=== PATIENT | male | born 1945 | race Caucasian/White ===

== ENCOUNTER 2020-04-17 13:08 | Emergency (ER) | payer OTHER | END 2020-04-17 21:07 | disposition home or self-care (01) | LOC: ER 13:08 | DX: D61.818 Other pancytopenia (principal); G89.29 Other chronic pain; E66.9 Obesity, unspecified; Z88.5 Allergy status to narcotic agent; Z79.899 Other long term (current) drug therapy; Z88.0 Allergy status to penicillin; Z79.4 Long term (current) use of insulin; Z79.82 Long term (current) use of aspirin ==

== ENCOUNTER 2020-06-25 14:59 | Inpatient (IN) | payer OTHER ==
[~2020-06-25] VITALS: Ht 180.3 cm; Wt 105.7 kg
--- NOTE | ~2020-06-25 | O ---
[facility] [place] [address] OPERATIVE REPORT Name: NAVID SHEETS Room #: 204-P ADM IN M.R.#: [id number] Admission: 06/25/20 Attend Phys: Senait Morelos MD Discharge: Date of : 41 Report #: [id number] THIS REPORT FOR: cc: Dallin Lucero James D. DO VanDenBerghe, Gregory R. MD ~ CC: Dallin Morelos DATE OF SERVICE: 06/30/2020 PREOPERATIVE DIAGNOSES: Left leg nonhealing diabetic ulcers, infected; peripheral diabetic neuropathy and vasculopathy; calcaneal osteomyelitis. POSTOPERATIVE DIAGNOSES: Left leg nonhealing diabetic ulcers, infected; peripheral diabetic neuropathy and vasculopathy; calcaneal osteomyelitis. PROCEDURE PERFORMED: Left below-knee amputation. SURGEON: Joe Watts MD ANESTHESIA: General per LMA. FLUIDS: 400 mL crystalloid. ESTIMATED BLOOD LOSS: 50 mL. SPECIMENS: Left leg. DESCRIPTION OF PROCEDURE: After proper identification of the patient and the operative site in preoperative holding area, the operative site was signed by myself. We again reviewed treatment options discussed the risks, benefits, alternatives and potential complications. We reviewed the level of the amputation based on his chronic venous stasis changes as well as the status of his lower extremity. The patient was comfortable with proceeding with a standard below-knee amputation. The patient was brought back to the operative suite and a general anesthetic was administered through LMA. Tourniquet was applied to the upper thigh. The left lower extremity was sterilely prepped and draped in the usual manner, elevated for exsanguination purposes. Tourniquet was inflated to 350 mmHg. The patient had multiple wounds on the foot and heel and chronic venous stasis in the lower extremity. Anteriorly and posteriorly based fishmouth type flaps were planned keeping this in as healthy tissue as possible. Planned bone cut was made as well as the skin incisions. Several eschars are noted on the anterior knee that were chronic in appearance, did not appear to be infected and at this point full thickness skin flaps were developed. The anterolateral compartment musculature was carefully divided with [facility] [address] [place] [address] OPERATIVE REPORT Name: NAVID SHEETS Room #: 204-P ADM IN M.R.#: [id number] Admission: 06/25/20 Attend Phys: Senait Morelos MD Discharge: Date of : 41 Report #: [id number] electrocautery and neurovascular structures were identified. Vascular structures were ligated and cauterized. All nervous structures were retracted distally and sectioned as far proximally as possible. Tibia and fibula cuts were planned. These were performed with an oscillating saw. Edges were chamfered to remove any sharp edges. Fibula was osteotomized proximal to the tibia. A posterior myocutaneous flap was created and the tourniquet was deflated. The patient had good punctate bleeding from the tissues. All major vascular structures had been ligated and cauterized. There was good hemostasis and the wound was thoroughly irrigated multiple times. At this point, the myocutaneous flap was closed. Fascial layer was closed with #1 Vicryl in a simple swsvut-iq-rimui manner. Then, 0 Vicryl for the more deeper subcutaneous tissues and final skin closure was with 2-0 nylon in a gneqik-ya-vinpm manner as well as iman. A Kat drain had been placed deep. This was freely mobile. There was good hemostasis, nice appearance to the stump. No significant dog ears were present and a sterile compressive dressing was applied and at the time of dictation, he was still in the operative suite with anticipated discharge to recovery room in stable condition. 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 By: [phone] Joe Watts MD /nt
[~2020-06-25 14:59] MED LIST: ASA81BEC PO; CALAMINE LOTIO177 M1 TOP; CLOTRIMAZOLE-321 GM TOP; DIFLUCAN100 MG PO; DULCOLAX5 MG PO; FUROSEMIDE 20 M20 MG PO; GUAIFENESIN DM1 EACH PO; HYDRALAZINE 5050 MG PO; KEFLEX500 M1 PO; LANTUS SUBQ; LIPITOR40 MG PO; NEURONTIN 300M300 M2 PO; NORCO 10-325 T1 EACH PO; NORVASC 2.5 MG2.5 M1 PO; NOVOLOG100 UNIT/M SUBQ; NYSTATIN15 G2 TOP; PLAVIX 75 MG TA75 MG PO; POTASSIUM20 PO; PROAIR HFA8.5 GM INH; SPIRIVA RESPIMAT4 G1 INH; SYMBICORT160 MCG/4. INH; SYNTHROID175 MCG PO; TREXALL7.5 MG PO
[2020-06-25 15:15] VITALS: BP 152/121
[2020-06-25 16:15] LABS: CALCIUM 9.2 mg/dL (8.5-10.1); POTASSIUM 4.4 mmol/L (3.5-5.1)
[2020-06-25 16:22] LABS: ALBUMIN 1.9 g/dL (3.4-5.0); TOTAL BILIRUBIN 0.5 mg/dL (0.2-1.0); TOTAL PROTEIN 8.2 g/dL (6.4-8.2)
[2020-06-25 17:07] LABS: ABSOLUTE NEUTROPHILS 18.2 thou/uL (1.4-8.2); BASOPHILS 0.6 % (0.0-2.0); EOSINOPHILS 0.4 % (0.0-3.0); HEMATOCRIT 28.3 % (42.0-52.0); HEMOGLOBIN 8.9 gm/dL (14.0-18.0); LYMPHOCYTES 3.5 % (24.0-44.0); MCH 29.2 pg (26.0-34.0); MCHC 31.4 g/dL (28.0-37.0); MCV 92.8 fL (80.0-100.0); MONOCYTES 3.5 % (1.0-8.0); PLATELET COUNT 327 thou/uL (150-400); RBC 3.05 mil/uL (4.50-6.00); RDW 20.1 % (10.5-14.5); WBC 19.8 thou/uL (4.0-11.0)
[2020-06-25 17:33] LABS: ANISOCYTOSIS 1+; PLATELET ESTIMATE NORMAL
--- NOTE | 2020-06-25 19:08 | NUR ---
CALLED LAB AT THIS TIME TO HAVE THEM COME PULL REPEAT LACTIC IT'S DUE AT 1900, MIGUEL SAID HE'D BE ON HIS WAY
[2020-06-25 21:14] LABS: % SATURATION 16 % (20-39); IRON 28 ug/dL (65-175); TIBC 170 ug/dL (250-450)
[2020-06-25 21:54] LABS: TSH 0.882 uIU/mL (0.358-3.740)
[2020-06-25 22:24] LABS: FOLIC ACID 50.5 ng/mL (8.6-58.9)
[2020-06-25 23:56] LABS: URINE BILIRUBIN NEGATIVE (Negative); URINE BLOOD 1+ (Negative); URINE CLARITY CLEAR; URINE COLOR YELLOW; URINE GLUCOSE-RANDOM* NEGATIVE (Negative); URINE KETONES NEGATIVE (Negative); URINE NITRITE-REFLEX NEGATIVE (Negative); URINE PROTEIN (DIPSTICK) TRACE (Negative); URINE UROBILINOGEN 0.2 E.U./dl (0.2-1.0)
[2020-06-26 00:05] LABS: URINE LEUKOCYTES-REFLEX 3+ (Negative)
[2020-06-26 00:31] LABS: BACTERIA-REFLEX 1-9 Few /HPF (None Seen); CASTS None Seen /LPF (None Seen); CRYSTALS None Seen /LPF (None Seen); MUCUS None Seen strn/LPF (None Seen); SQUAMOUS None Seen /LPF (0-3); URINE RBC 0-2 Rare /HPF (0-2)
[2020-06-26 06:53] LABS: HEMOGLOBIN 9.5 gm/dL (14.0-18.0); PLATELET COUNT 317 thou/uL (150-400)
[2020-06-26 06:55] LABS: ABSOLUTE NEUTROPHILS 13.5 thou/uL (1.4-8.2); BASOPHILS 1.1 % (0.0-2.0); EOSINOPHILS 3.6 % (0.0-3.0); HEMATOCRIT 29.7 % (42.0-52.0); LYMPHOCYTES 8.4 % (24.0-44.0); MCH 29.8 pg (26.0-34.0); MCV 93.3 fL (80.0-100.0); MONOCYTES 4.7 % (1.0-8.0); POLYS 82.2 % (36.0-66.0); RBC 3.19 mil/uL (4.50-6.00); RDW 20.2 % (10.5-14.5); WBC 16.4 thou/uL (4.0-11.0)
[2020-06-26 07:16] LABS: ALBUMIN 1.8 g/dL (3.4-5.0); CALCIUM 8.6 mg/dL (8.5-10.1); CREATININE 2.3 mg/dL (0.7-1.3); MAGNESIUM 2.2 mg/dL (1.8-2.4); PHOSPHORUS 3.7 mg/dL (2.5-4.9); POTASSIUM 3.6 mmol/L (3.5-5.1); TOTAL BILIRUBIN 0.3 mg/dL (0.2-1.0); TOTAL PROTEIN 7.6 g/dL (6.4-8.2)
--- NOTE | 2020-06-26 10:01 | NUR ---
ORTHO CONSULT, THIS WEB SPECIALIST SPEAKS WITH DR DAVIS. THIS WEB SPECIALIST UPDATES ABOUT PT AND READS LFOOT XRAY. VERBAL ORDER PER DR DAVIS: 3 VIEW XRAY OF RIGHT FOOT
--- NOTE | 2020-06-26 10:06 | NUR ---
SPOKE WITH DR COLIN IN INFECTIOUS DISEASE PER CONSULT ORDERS.
--- NOTE | 2020-06-26 11:03 | NUR ---
VASCULAR ACCESS CONSULTED FOR ML IN ADDITION TO PIV. GENE BRACHIAL WAS WIDELY PATENT WITH USG. DISCUSSED BENEFITS AND RISK WITH PT, VERBALIZED CONSENT. 4FR POWER ML TRIMMED TO 13CM WITH 1CM EXTERNAL BRISK BR. RELEASED FOR IMMEDIATE USE PER PROTOCOL TO JACKSON SAUL. PT TOLERATED WELL
[2020-06-26 22:11] VITALS: BP 147/87
[2020-06-26 22:18] VITALS: BP 135/64
[2020-06-27 00:50] VITALS: BP 131/57
[2020-06-27 05:14] VITALS: BP 132/56
--- NOTE | 2020-06-27 06:28 | NUR ---
RECIEVED PT FROM ED UPON ARRIVAL TO UNIT PT WITH URINE AND STOOL WOUND NOTED ON HEEL AND BILATERAL FEET, AND COCCYX AREA PICTURES TAKEN AND CHARTED , DATA BASE COMPLETED FROM [facility] AND ASSESSMENT COMPLETED , IV ANTIBOTICS STARTED, PT REQUESTED FOOD , BOX LUNCH GIVEN, BLOOD GLUCOSE TAKEN AND TREATED. PT ALERT TO SELF AND PLACE , POOR HISTORIAN , AND PERIOD OF FORGETFULNESS NOTED. ENVIRONMENTAL GEOLOGIST PLACED ON SHOWS NSR WITH BBB. BED ALARM ON FOR SAFETY WILL CONITNUE WITH CURRENT PLAN OF CARE.
--- NOTE | 2020-06-27 19:51 | NUR ---
PT A&OX3-4. CONFUSED AT TIMES. IV INTACT IN L HAND, R HAND AND R FA. INCONT OF BOWEL AND BLADDER. CALL LIGHT W/I REACH, BED ALARM ON. FEEDS SELF WITH SETTING UP TRAY.
[2020-06-27 20:35] VITALS: BP 134/61
[2020-06-28 04:41] VITALS: BP 134/62
--- NOTE | 2020-06-28 04:57 | NUR ---
Patient making slow progress towards outcome goals. Vital signs and rhythm stable. Total care.
[2020-06-28 05:47] LABS: HEMATOCRIT 25.8 % (42.0-52.0); HEMOGLOBIN 8.2 gm/dL (14.0-18.0); MCH 29.8 pg (26.0-34.0); MCHC 31.7 g/dL (28.0-37.0); MCV 93.9 fL (80.0-100.0); RBC 2.75 mil/uL (4.50-6.00); RDW 19.7 % (10.5-14.5); WBC 11.5 thou/uL (4.0-11.0)
[2020-06-28 06:03] LABS: CREATININE 1.7 mg/dL (0.7-1.3); POTASSIUM 3.7 mmol/L (3.5-5.1)
[2020-06-28 08:45] VITALS: BP 137/57
[2020-06-28 12:31] VITALS: BP 126/50
--- NOTE | 2020-06-28 17:01 | NUR ---
PT CARE ASSUMED AT 0700, PT ALERT AND ORIENTED X3, DENIES CHEST PAIN, NAUSEA AND VOMITING. VITSAL SIGNS STABLE. PT IS ON 3L OF O2 VIA NC, NO SIGNS OF DISTRESS LUNGS DIMINISHED. PT INCONTIENT, FREQUENTLY CHECKED AND CLEANED UP. WOUND CARE COMPLETED ON THE LEFT HEEL AND SACRUM. PT REFUSE TO BE TURN, EDUCATION REINFORCED. CALL LIGHT AND TABLE WITHIN REACH, BED AT LOWEST LEVELW WITH ALARM ON. WILL CONTINUE TO MONITOR.
[2020-06-28 17:25] VITALS: BP 119/47
[2020-06-28 19:57] VITALS: BP 134/50
[2020-06-29 00:15] VITALS: BP 132/56
[2020-06-29 04:00] VITALS: BP 137/59
--- NOTE | 2020-06-29 04:18 | NUR ---
Patient making slow progress towards outcome goals. Vital signs and rhythm stable. Denies pain. NPO after MN for planned Left below knee amputation. Patient expressed understanding of surgery including risks, Consent signed by patient and witnessed by this ad writer. High fall risks, fall precautions in place.
[2020-06-29 07:48] VITALS: BP 121/50
--- NOTE | 2020-06-29 10:04 | NUR ---
RD consult received for pt with nonhealing diabetic foot ulcer. Pt will require BKA today. Pt in isolation so unable to visit. Spoke with RN, pt has been eating well. Ate 70-100% of 2 meals yesterday. Hx diabetes, A1C 7%, reasonable control. Unsure of any wt changes. Recommend resume carb control diet and will offer Glucerna shake 1x day post op for added protein. Low nutrition risk
[2020-06-29 11:18] VITALS: BP 104/50
--- NOTE | 2020-06-29 11:46 | NUR ---
Case opened to follow for dc planning. Chart reviewed and case discussed with the care team. Air And Missile Defense Crewmember attempted to reach the pt in his room w/o success. Pt is a half-way care resident at [facility]. Their liason has faxed two covid neg test results over for 06/16/20 and 06/12/20 and senior grant writer forwarded those to the unit. Pt is A&ox3 but forgetful. He is his own person and does not have a dpoa or legal guardian. He has a friend noted as his emergency contact. The pt has consented for lt BKA with MRI pending. Covid test here was negative also. Pt is NPO for possible surgery today. Enhanced ISO being dc'd and the pt will likely transfer to a med surg floor postop. He is on 3liters of O2 and is incont of bowel/bladder. He has limited mobility and chronic wounds at the facility. DC plan is to return to the [facility]. They are checking to see if he has any medicare snf days available for therapy;otherwise he will return under his medicaid with part B therapies. Will follow.
[2020-06-29 15:14] VITALS: BP 120/55
--- NOTE | 2020-06-29 17:50 | NUR ---
PT CARE ASSUMED 0700, PT ALERT AND ORIENTED X4, PT DENIES CHEST PAIN, NAUSEA AND VOMITTING. PT IS ON 3L OF O2 VIA NC, NO SIGNS OF DISTRESS NOTED. PT COMPLAINS OF LEFT FOOT PAIN, DR. BUTT NOTIFIED, NEW PAIN MED GIVEN PER ORDER. 1100 SURGERY CANCELLED UNTIL TMR, PT ABLE TO EAT TODYA AND KEEP NPO AFTER MIDNIGHT PER SURGERY ORDER. 1400 PT TAKEN DOWN FOR MRI [address] PT BELONGINGS PACKED AND SENT DOWN WITH PT TO CCU.
[2020-06-29 19:38] VITALS: BP 132/62
--- NOTE | 2020-06-30 03:11 | NUR ---
ASSUMED CARE OF PATIENT AT 1900. PATIENT REMAINS ON 3L OF OXYGEN. LUNG SOUNDS COARSE. NO COUGH NOTED. FIRM EDEMA IN BILATERAL LOWER EXTREMITIES. DRESSING TO LEFT FOOT REMAINS INTACT. PATIENT NPO AT MIDNIGHT.
[2020-06-30 04:49] VITALS: BP 127/51
[2020-06-30 06:22] LABS: HEMATOCRIT 27.7 % (42.0-52.0); HEMOGLOBIN 9.1 gm/dL (14.0-18.0); MCH 30.8 pg (26.0-34.0); MCHC 32.9 g/dL (28.0-37.0); MCV 93.7 fL (80.0-100.0); RBC 2.96 mil/uL (4.50-6.00); WBC 10.8 thou/uL (4.0-11.0)
--- NOTE | 2020-06-30 09:50 | NUR ---
RECEIVED OT EVALUATION ORDERS PRIOR TO PATIENT'S BKA. WILL NEED NEW POST OP ORDERS.
--- NOTE | 2020-06-30 09:59 | HC ---
[facility] [place] [address] CONSULTATION Name: NAVID SHEETS Room #: 204-P ADM IN M.R.#: [id number] Admission: 06/25/20 Attend Phys: Senait Morelos MD Discharge: Date of : 41 Report #: [id number] THIS REPORT FOR: cc: Dallin Lucero,Ricardo Painter MD ~ CC: Dallin Morelos DATE OF SERVICE: 06/26/2020 CHIEF COMPLAINT: Left heel ulceration. HISTORY OF PRESENT ILLNESS: This is a 75-year-old male patient with a history of left heel ulcer for the past several months. It began around 05/16 as a blister, was being managed by Podiatry, has become increasingly painful with drainage and apparently exposed bone. PAST MEDICAL HISTORY: Positive for history of sepsis, positive COPD, type 2 diabetes mellitus, hypertension, hyperlipidemia, tobacco dependency, and history of peripheral vascular disease. He has had prior amputation of the toes of the left foot. FAMILY HISTORY: Positive for heart disease in the father. SOCIAL HISTORY: Positive for current smoker, 2 packs per day. Heavy use of alcohol in the past, having quit 36 years ago. MEDICATIONS: Include ProAir, Norvasc, enteric-coated aspirin, Lipitor, Dulcolax, Symbicort, calamine, Keflex, Plavix, clotrimazole, Diflucan, furosemide, Neurontin, hydralazine, Lantus, Synthroid, methotrexate, [place], Norvasc, K-Dur. PHYSICAL EXAMINATION: VITAL SIGNS: Include temperature 37.1, pulse rate 122, respiratory rate 20, blood pressure 152/121. GENERAL: This is a chronically ill-appearing male patient who appears to be in minimal distress. HEENT: Head normocephalic. Nose and throat are clear. NECK: Supple. LUNGS: Diminished. HEART: Regular rhythm. ABDOMEN: Soft. EXTREMITIES: The right foot demonstrates surgically absent toes. There is a very large left heel ulcer with purulent drainage and palpable bone. NEUROLOGIC: The patient is alert and oriented. [address] [address] CONSULTATION Name: NAVID SHEETS Room #: 204-P ADM IN M.R.#: [id number] Admission: 06/25/20 Attend Phys: Senait Morelos MD Discharge: Date of : 41 Report #: [id number] LABORATORY DATA: Include white blood cell count 19.8, hemoglobin 8.9. Sodium 138, potassium 3.6, chloride 101, CO2 of 30, BUN 65, creatinine 2.3. CRP 299. X-ray does not show evidence of any osteomyelitis. CLINICAL IMPRESSION: 1. Diabetic ulceration to the left posterior heel with probable underlying osteomyelitis. 2. History of tobacco use. 3. Peripheral vascular disease by clinical exam. RECOMMENDATIONS: At this point in time, I think additional studies including sed rate, possible MRI of the left foot would be appropriate as well as vascular studies. Likely, the foot is not salvageable and require BKA. The hospitalist had already consulted Orthopedic Surgery. We will recommend a Dakin's moist gauze dressing for the time being. I appreciate being asked to see him in consultation. <ELECTRONICALLY SIGNED> By: Ricardo Burgos MD 06/30/20 0959 [id number] [id number] Ricardo Burgos MD /nt
[2020-06-30 10:04] VITALS: BP 108/55
--- NOTE | 2020-06-30 10:27 | NUR ---
PATIENT HAS NO MEDICARE A DAYS LEFT. WOULD RETURN TO FACILITY [facility] [place] MEDICAID AND UTILIZE PART B THERAPIES.
[2020-06-30 10:37] VITALS: BP 108/33
--- NOTE | 2020-06-30 10:38 | NUR ---
PT CARE ASSUMED FROM OR AT 1005. A&Ox4. PT COMPLAINING OF PAIN ON AMPUTATED LEG. EDUCATION GIVEN ON NERVE ENDINGS AND PAIN MEDICATED. VITALS STABLE EXCEPT O2. ON 5L WITH 94%. PT TOLERATING CLEAR LIQUIDS WELL AND AVANCED BACK TO PRE OP DIET. PT RESTING. FALL PROTOCOL IN PLACE. IV PATENT WITH NO REDNESS OR EDEMA. PICC LINE DRAWS BACK AND FLUSHES WELL. FLUIDS INFUSING ON IV SITE. WILL CONTINUE TO MOMNITR AND WEAN OFF OF O2. CALL LIGHT IN REACH.
[2020-06-30 10:51] LABS: CALCIUM 8.5 mg/dL (8.5-10.1); CREATININE 1.7 mg/dL (0.7-1.3); POTASSIUM 4.1 mmol/L (3.5-5.1)
--- NOTE | 2020-06-30 16:23 | NUR ---
FAXED CLINICAL UPDATE TO [facility] SPOKE WITH DOMINIK DICKEY SHE RECEIVED UPDATE. DP TO FOLLOW.
[2020-06-30 16:55] VITALS: BP 120/65
[2020-06-30 19:47] VITALS: BP 115/54
[2020-07-01] VITALS (9 sets, daily range): BP systolic 103–132; BP diastolic 41–75
--- NOTE | 2020-07-01 05:28 | NUR ---
SLEPT MOST OF SHIFT PAST PAIN MEDICATION NEEDED. WORKING ON GOALS AND PLAN OF CARE FOR NOC. REPOSITIONED EVERY 2-3 HOURS FOR COMFORT AND SKIN CARE. PROGRESSING SLOWLY TOWARDS DISCHARGE GOALS. CONTINUE TO ASSES CLOSELY.
[2020-07-01 05:37] LABS: HEMATOCRIT 25.6 % (42.0-52.0); HEMOGLOBIN 8.2 gm/dL (14.0-18.0); MCH 29.9 pg (26.0-34.0); MCHC 31.8 g/dL (28.0-37.0); MCV 93.8 fL (80.0-100.0); RBC 2.73 mil/uL (4.50-6.00); RDW 19.8 % (10.5-14.5); WBC 9.7 thou/uL (4.0-11.0)
[2020-07-01 05:49] LABS: CREATININE 1.6 mg/dL (0.7-1.3); POTASSIUM 4.3 mmol/L (3.5-5.1)
--- NOTE | 2020-07-01 14:49 | NUR ---
tenative plan for discharge in am. Patient asking if can have a pvt room. Inquired and they are full unable to provide pvt room. Let patient know. He is aware tenative dc in am. Dr Guidry sp with facility and they do not need a COVID to return. Patient likely need stretcher van for transport.
--- NOTE | 2020-07-01 18:37 | NUR ---
ASSUMED CARE AT SHIFT CHANGE, ALERT AND ORIENTED X3, FORGETFUL AND PLEASANTLY CONFUSED. Q2 POSITIONED AND NEEDED FOR COMFORT. MEDICATED FOR LT BKA PAIN. PROGRESSING TOWARDS GOALS AND WILL CONTINUE TO MONITOR.
[2020-07-02 04:54] VITALS: BP 124/64
[2020-07-02 05:50] LABS: HEMATOCRIT 27.3 % (42.0-52.0); HEMOGLOBIN 8.7 gm/dL (14.0-18.0); MCH 30.2 pg (26.0-34.0); MCV 94.4 fL (80.0-100.0); RBC 2.89 mil/uL (4.50-6.00); RDW 19.4 % (10.5-14.5); WBC 9.3 thou/uL (4.0-11.0)
[2020-07-02 07:46] VITALS: BP 121/59
[2020-07-02] MEDS ORDERED: CIPRO500 M1 PO (10:05)
[2020-07-02] MEDS ORDERED: KEFLEX500 M1 PO (10:05)
--- NOTE | 2020-07-02 10:51 | NUR ---
RECEIVED PT'S CARE AROUND 0710; PT. ON BED; RESTING WITH EYES CLOSED; EQUAL CHEST RISING NOTICED; SR ON THE MONITOR; DURING AM ASSESSMENT; ALERT TO PERSON, PLACE & SITUATION; C/O PAIN OVER LLE; PT. RESTING WITH CLOSE EYES IMMEDIATELY AFTER TALKING; SLEEP INTERRUPTED TO GIVE AM MEDICATIONS; SR ON THE MONITOR; EDUCATED ABOUT CALLING & NOT SHOUTING; ST. UNDERSTANDING; EDUCATED ABOUT D/C PROCESS; ST. UNDERSTANDING; FORGETFUL; ASSESSMENT CHARGED; FOLLOWING POC; WORKING ON D/C PAPERS; PER HUMAN RESOURCE OFFICER RIDE WILL ARRIVE AT 1300; MONITORING;
--- NOTE | 2020-07-02 10:52 | NUR ---
Pt dcing back to bed bug exterminator care at [facility] via stretcher van at 1300 today. All parties updated. Chart copy is in progress and dc digital media planner is faxing his oders. Pt does not have any snf medicare days left and will return there [facility] with recommendations for part b therapies.
[2020-07-02 11:01] VITALS: BP 128/75
[2020-07-02] MEDS ORDERED: CIPRO500 MG PO (12:16)
--- NOTE | 2020-07-02 12:45 | NUR ---
PT DIS[place] [facility] [place] ORDERS/SUMMARY TO FACILITY SPOKE WITH DOMINIK IN ADM SHE RECEIVED ORDERS. TRANSPORT ARRANGED BY MARCI GILMAN FOR 1300 TODAY.
[2020-07-02 15:54] LABS: URINE BILIRUBIN NEGATIVE (Negative); URINE BLOOD NEGATIVE (Negative); URINE CLARITY SL CLOUDY; URINE COLOR YELLOW; URINE GLUCOSE-RANDOM* NEGATIVE (Negative); URINE KETONES NEGATIVE (Negative); URINE NITRITE-REFLEX NEGATIVE (Negative); URINE PROTEIN (DIPSTICK) 1+ (Negative); URINE UROBILINOGEN 0.2 E.U./dl (0.2-1.0)
[2020-07-02 15:56] LABS: URINE LEUKOCYTES-REFLEX 1+ (Negative)
[2020-07-02 16:09] LABS: CASTS None Seen /LPF (None Seen); SQUAMOUS 0-3 Few /LPF (0-3); URINE RBC 0-2 Rare /HPF (0-2); URINE WBC-REFLEX 6-15 Few /HPF (0-5)
[2020-07-02 16:10] LABS: CRYSTALS None Seen /LPF (None Seen)
--- NOTE | 2020-07-06 08:06 | PATH ---
[facility] [address] [place] [address] PATHOLOGY RPT PROCEDURE Name: MICHAEL SHEETS Room #: 204-P DIS IN M.R.#: [id number] Admission: 06/25/20 Date of : 41 Discharge: 07/02/20 Report #: [id number] Path Case #: [id number] [facility] Accession Number: [id number] . 01 Material submitted: . knee - LEFT BELOW KNEE. Modifiers: left . 01 Clinical history: . SEPSIS SEPTIC SHOCK, OSTEOMYELITIS . 02 Diagnosis: Leg, left, below knee amputation: - Skin and subcutaneous tissue showing extensive ulceration, marked acute inflammation as well as gangrenous necrosis. - Acute inflammation extends into underlying bone showing acute osteomyelitis as well as osteonecrosis. - Anterior and posterior tibial vessels showing moderate calcific atherosclerosis associated with luminal narrowing. - Skin and subcutaneous tissue margin viable. - Bone margin grossly viable. (IUV:bonita; 07/03/2020) QMS 07/03/2020 1452 Local . 02 Electronically signed: . Liz Soria MD, Pathologist NPI- [id number] . 01 Gross description: . The specimen is received fresh in a red biohazard bag, labeled "Michael Sheets, left below knee". Received is a left [id number] amputation measuring 26.6 cm from heel to toe, 27.2 cm from heel to skin margin, 35.0 cm from heel to tibial bone margin, and 38.4 cm from heel to fibular bone margin. The bone margins are blunt in appearance, consistent with transection, and appear grossly unremarkable. The skin and soft tissue margins appear viable. All five toes are present. The nails are pale hudson to light hudson and severely thickened in appearance. Overlying the lateral one half of the foot, and extending onto the calcaneus, is a poorly circumscribed, irregular in contour and necrotic-appearing lesion measuring 20.2 x 7.1 cm in greatest dimensions. Sectioning through the lesion on the lateral aspect of the foot reveals underlying purulent material. On the medial aspect of the calcaneus, lesion exposes the underlying bone. Near the skin margin on the anterior aspect, there is a poorly circumscribed, irregular in contour, flaky and light hudson lesion measuring 12.8 x 6.6 cm. Sectioning through the anterior and posterior tibial vasculatures reveals patent lumens. The specimen is submitted representatively as follows: [address] [address] PATHOLOGY RPT PROCEDURE Name: MICHAEL SHEETS Room #: 204-P DIS IN M.R.#: [id number] Admission: 06/25/20 Date of : 41 Discharge: 07/02/20 Report #: [id number] Path Case #: [id number] . A1 skin and soft tissue margin A2 account retention representative section of lesion from lateral aspect of foot A3 account retention representative section of lesion from calcaneus overlying exposed bone A4 account retention representative sections of calcaneal bone, following decalcification A5 anterior and posterior tibial vasculatures. (CAA; 07/01/2020) QAC/QAC 07/01/2020 1923 Local . 02 Pathologist provided ICD-10: L97.929, L98.9, I96, M86.10, M87.9, I70.202 . 02 CPT . 102811, [id number] Specimen Comment: A courtesy copy of this report has been sent to [phone], [phone]- Specimen Comment: [phone], Specimen Comment: Report sent to ,DR DE LA O / DR MCDONOUGH Specimen Comment: Report sent to Performed at: [address] [facility] [address], [place], [place] [id number] MD David Malloy MD Phone: [phone] Performed at: [address] [facility] [address] [id number] MD Liz Soria MD Phone: [phone]
== END 2020-07-02 15:49 | DRG 853 ==
LOC: ER 14:59 → 3W 17:22 → EROBS 17:22 → 3W 06-27 00:02 → 2N 06-29 18:12
PROVIDERS: Anesthesiology; Hospitalist; Nurse Practitioner Family; Physician Assistant; Physician Assistant Surgical; Specialist; ADMIT Internal Medicine; ATTEND Internal Medicine
PROC: 05H933Z Insertion of Infusion Device into Right Brachial Vein, Percutaneous Approach (ICD-10-PCS; principal; 2020-06-26)
PROC: 0Y6J0Z2 Detachment at Left Lower Leg, Mid, Open Approach (ICD-10-PCS; 2020-06-30)
DX: A41.9 Sepsis, unspecified organism (principal); N17.0 Acute kidney failure with tubular necrosis; R65.21 Severe sepsis with septic shock; E43 Unspecified severe protein-calorie malnutrition; L03.116 Cellulitis of left lower limb; M86.8X7 Other osteomyelitis, ankle and foot; N39.0 Urinary tract infection, site not specified; E11.52 Type 2 diabetes mellitus with diabetic peripheral angiopathy with gangrene; I96 Gangrene, not elsewhere classified; I13.0 Hypertensive heart and chronic kidney disease with heart failure and stage 1 through stage 4 chronic kidney disease, or unspecified chronic kidney disease; E11.621 Type 2 diabetes mellitus with foot ulcer; E11.69 Type 2 diabetes mellitus with other specified complication; J44.9 Chronic obstructive pulmonary disease, unspecified; E78.5 Hyperlipidemia, unspecified; E11.51 Type 2 diabetes mellitus with diabetic peripheral angiopathy without gangrene; D63.8 Anemia in other chronic diseases classified elsewhere; N18.3 Chronic kidney disease, stage 3 (moderate); E11.22 Type 2 diabetes mellitus with diabetic chronic kidney disease; E03.9 Hypothyroidism, unspecified; E11.42 Type 2 diabetes mellitus with diabetic polyneuropathy; D50.0 Iron deficiency anemia secondary to blood loss (chronic); B96.5 Pseudomonas (aeruginosa) (mallei) (pseudomallei) as the cause of diseases classified elsewhere; I50.9 Heart failure, unspecified; L40.9 Psoriasis, unspecified; Z20.828 Contact with and (suspected) exposure to other viral communicable diseases; Z88.6 Allergy status to analgesic agent; Z88.0 Allergy status to penicillin; Z86.73 Personal history of transient ischemic attack (TIA), and cerebral infarction without residual deficits; Z89.432 Acquired absence of left foot; Z82.49 Family history of ischemic heart disease and other diseases of the circulatory system; Z87.891 Personal history of nicotine dependence; Z79.899 Other long term (current) drug therapy
CPT/HCPCS: 10081; 10879; 27000; 50010; 50101; 50386; 51412; 53000; 56524; 56525; 56527; 57091; 57180; 62110; 62900; 70005